=== PATIENT | male | born 1965 | race Hispanic/Latino ===

== ENCOUNTER 2024-09-14 00:57 | Emergency (ER) | payer SELFPAY ==
[~2024-09-14] VITALS: Ht 162.6 cm; Wt 59.0 kg
--- NOTE | 2024-09-14 01:19 | ERN ---
ED Note History of Present Illness Stated Complaint: C/O LOWER BACK PAIN RADIATING DOWN RT LEG X 2 WKS Chief Complaint: Back Pain-No Injury Time Seen by MD: 01:04 Time Seen by Midlevel: 01:04 Dictation: The patient is a 59-year-old male with history of diabetes who presents to the emergency department with complaints of low back pain radiating down both legs onset two weeks ago. Patient does report that he has been having this pain on and off for 10 years. Denies any trauma or falls. Denies any urinary or fecal incontinence. Denies any urinary discomfort or hematuria. Allergies: Coded Allergies: No Known Allergies (Unverified Allergy, Unknown, 09/14/24) Past Medical History Past Medical History: Diabetes-Type II Surgical History: None RN Note Reviewed/Agreed w/PFSH: Yes Review of System Dictation Constitutional: Negative for fever,chills, and weight loss Eyes: Negative for injury, pain,redness, and discharge ENT: Negative for injury,pain or swelling Cardiovascular: Negative for chest pain, palpitations, and edema Respiratory: Negative for shortness of breath, cough, and wheezing, Abdomen/GI: Negative for abdominal pain, nausea, vomiting, diarrhea, and constipation Back: Negative for injury and pain positive for low back pain : Negative for injury, bleeding and discharge MS/Extremity: Negative for injury and deformity Skin: Negative for rash, and discoloration Neuro: Negative for headache, weakness, numbness, tingling, and seizure Psych: Negative for suicide ideation, homicidal ideation, and hallucinations Initial Vital Sign VS Vital Signs Date Time Temp Pulse Resp B/P (MAP) Pulse Ox O2 Delivery O2 Flow Rate FiO2 09/14/24 01:00 98.1 95 20 141/77 99 Room Air Physical Exam Dictation Vital Signs reviewed General Appearance: Alert, oriented x 3, no acute distress, well developed, nourished. Head and Face: non-traumatic. Eyes: PERRL, pink conjunctivas, eyelid no trauma, anterior chamber with arcus senilis. Ears: Pinnas intact and no signs of trauma or erythema ear canals clear and no discharge TM no erythema Nose: No discharge, no bleeding. Oropharynx: Mouth normal, tongue pink. pharynx clear,no erythema, tonsils no exudates, no abscesses noted, mucous membrane moist Neck: Supple, non-tender, no thyromegaly, no masses, no JVD, no bruits Breast:Deferred Chest:No tenderness, no crepitus, no paradoxical movement, no retractions Lungs:Clear, well-ventilated, symmetric, no rales, no wheezing, no rhonchi, no stridor, good breath sounds bilaterally Heart: Regular rate, regular rhythm, no murmur, no gallops Vascular: no peripheral edema, Abdomen: Soft, positive bowel sounds, nondistended, no guarding, nontender, no rebound, no masses no hepatomegaly, no splenomegaly, no Bates's sign, no hernias. Rectal: Deferred Genital: Deferred Neurological: Normal speech, motor function intact, sensory function intact Musculoskeletal: Neck nontender, full range of motion, back nontender, full range of motion, no deformities Extremities: nontender, full range of motion, positive leg raise test Skin: Color pink, dry, no turgor, no rash, no lacerations, no abrasions, no contusions. Lymphatic: Deferred Results (Laboratory/Radiology) Labs Reviewed?: Yes ED Course ED Course Orders Procedure Category Date Status Time Lumbar Spine 2-3vws RAD 09/14/24 Taken 01:13 Triamcinolone Acet PHA 09/14/24 In Process 40mg/Ml 1ml (Kenalog 01:30 Orphenadrine Citrate PHA 09/14/24 In Process (Norflex) 01:30 Methylprednisolone PHA 09/14/24 In Process Succ 40mg (Solu-Medro 03:30 Ketorolac PHA 09/14/24 In Process Tromethamine 15mg/Ml 03:30 Current Medications Medications (Trade) Dose Ordered Sig/Alanis Route PRN Reason Start Time Stop Time Status Last Admin Dose Admin Ketorolac Tromethamine (toRADol) 15 mg ONCE ONCE IV 09/14/24 03:30 09/14/24 03:31 Methylprednisolone Sodium Succinate (Solu-medROL 40MG) 40 mg ONCE ONCE IVP 09/14/24 03:30 09/14/24 03:31 Orphenadrine Citrate (Norflex) 60 mg ONCE ONCE IM 09/14/24 01:30 09/14/24 01:31 Triamcinolone Acetonide (Kenalog 40) 40 mg ONCE ONCE IM 09/14/24 01:30 09/14/24 01:31 Vital Signs Date Time Temp Pulse Resp B/P (MAP) Pulse Ox O2 Delivery O2 Flow Rate FiO2 09/14/24 01:00 98.1 95 20 141/77 99 Room Air Medical Decision Making MDM The patient is a 59-year-old male with history of diabetes who presents to the emergency department with complaints of low back pain radiating down both legs onset two weeks ago. Patient does report that he has been having this pain on and off for 10 years. Denies any trauma or falls. Denies any urinary or fecal incontinence. Denies any urinary discomfort or hematuria. Differential diagnosis: Lumbar fracture, sciatic nerve pain, back strain Need for hospitalization: Patient does not meet criteria for hospitalization. There are no social concerns with this patient. DX & DISP Disposition: Discharge Departure Impression: Primary Impression: Lumbar radiculopathy, right Additional Impression: Sciatica associated with disorder of lumbosacral spine Condition: Stable Scripts Ketorolac Tromethamine (Toradol) 10 Mg Tab 10 MG PO QID for pain for 5 Days, #20 TAB 0 Refills Prov: AVELINO VILLANUEVA MD 09/14/24 Cyclobenzaprine HCl (Cyclobenzaprine HCl) 5 Mg Tablet 1 TAB PO TIDP PRN for muscle spasms for 10 Days, #30 TAB 0 Refills Prov: AVELINO VILLANUEVA MD 09/14/24 Prednisone (Prednisone) 20 Mg Tablet 1 TAB PO AD for 6 Days, #14 TAB 0 Refills TAKE 1 TAB BY MOUTH THREE TIMES PER DAY X3 DAYS, THEN TAKE 1 TAB BY MOUTH TWICE A DAY X2 DAYS, THEN TAKE 1 TAB BY MOUTH ONCE A DAY X1 DAY. Prov: AVELINO VILLANUEVA MD 09/14/24 Additional Instructions: Patient and the caregiver have been informed of all the diagnostic tests and the imaging conducted during the today's visit to the emergency room and has verbalized understanding of the results I have personally reviewed and interpreted all diagnostic exams performed here in the ER today as well as the vital signs documented by the nursing staff. The patient is now being discharged to home and should follow up with the primary care physician or the specialist as directed by the ER staff. Follow-up with primary care provider in 1 to 2 days. Take medications as directed here in the emergency room. Okay to continue home medications unless otherwise discussed during your visit in the emergency room today. Return to your nearest emergency room if symptoms worsen or if there is no improvement. Call 911 if you need immediate assistance. Take Tylenol or Motrin [id number] as needed and if no contraindications are present. Increase oral hydration. A wound culture or urine culture was ordered here in the emergency room department please follow-up with primary care provider and advise them to get repeat ports from our facility. If you had any Miky wrap/splints that were applied here, please do not remove them until you see your primary care or specialty. KACIE LEONARD Sep 14, 2024 01:19 AVELINO VILLANUEVA MD Sep 14, 2024 03:20
--- NOTE | 2024-09-14 03:04 | NUR ---
CALLED IN ER LOBBY, NO ANSWER
[2024-09-14] MEDS ORDERED: PRED20TA3 PO (03:20)
[2024-09-14] MEDS ORDERED: CYCL5TAB3 PO (03:20)
[2024-09-14] MEDS ORDERED: KETO10 PO (03:20)
[2024-09-14] MEDS: Solu-medROL 40MG VIAL IVP ONE (04:11)
[2024-09-14] MEDS: ORPHENADRINE 60MG/2ML IM ONE (04:11)
[2024-09-14] MEDS: TRIAMCINOLONE ACETONIDE 40 MG/ML 1ML VIAL IM ONE (04:11)
[2024-09-14] MEDS: ketOROlac 15MG/ML VIAL (15MG/ML) IV ONE (04:11)
[2024-09-14 04:42] VITALS: BP 136/69; PULSE 89; RESP 18; TEMP 98.2; O2SAT 99
--- NOTE | 2024-09-14 10:55 | HMCIMG ---
LUMBAR SPINE 2-3VWS HISTORY: Low-back COMPARISON: None FINDINGS: 3 images of lumbar spine were obtained. There is straightening of normal lordotic curvature which may be related to muscle spasm or positioning. No loss of vertebral height is seen. No fracture or dislocation is seen. Degenerative changes are seen. IMPRESSION: 1. No fracture is seen.
== END 2024-09-14 04:45 | disposition home or self-care (01) ==
LOC: EDH 00:57
DX: M54.16 Radiculopathy, lumbar region (principal); M54.42 Lumbago with sciatica, left side; M54.41 Lumbago with sciatica, right side; E11.9 Type 2 diabetes mellitus without complications
CPT/HCPCS: 99284; 96374; 96375; 72100; 96372 ×2; J2919; J3301; J1885; J2360